=== PATIENT | female | born 1970 | race Caucasian/White ===

== ENCOUNTER → 2021-07-20 | Outpatient (CLI) | payer BC | LOC: KOH-I 13:40 | DX: R06.02 Shortness of breath (principal); U09.9 Post COVID-19 condition, unspecified | CPT/HCPCS: 71046 ==

== ENCOUNTER → 2021-07-20 | Outpatient (CLI) | payer BC | LOC: LAB 09:15 | DX: E87.6 Hypokalemia (principal) | CPT/HCPCS: 36415; 84132 ==

== ENCOUNTER → 2021-08-10 | Outpatient (CLI) | payer BC | LOC: ECHO 08:51 | DX: R00.2 Palpitations (principal) | CPT/HCPCS: ECHO; 93306 ==